=== PATIENT | male | born 1970 | race Asian ===

== ENCOUNTER 2018-07-05 00:24 | Emergency (ER) | payer OTHER ==
[~2018-07-05] VITALS: Ht 167.6 cm; Wt 87.3 kg
[2018-07-05] MEDS ORDERED: ZOLPIDEM TARTRATE 10 MG TABLET PO PRN (04:00)
[2018-07-05] MEDS ORDERED: LORazepam 2 MG TABLET PO PRN (04:00)
[2018-07-05] MEDS ORDERED: HALOPERIDOL 5 MG TABLET PO PRN (04:00)
[2018-07-05 05:02] LABS: BASOPHILS % (AUTO) 1.1 % (0.0-2.0); EOSINOPHILS % (AUTO) 0.7 % (1.0-6.0); HEMOGLOBIN 16.3 g/dL (13.5-17.5); LYMPHOCYTES # (AUTO) 1.5 K/uL (1.0-4.8); LYMPHOCYTES % (AUTO) 17.8 % (22.0-44.0); MEAN CORPUSCULAR HEMOGLOBIN 32.5 pg (26.0-34.0); MEAN CORPUSCULAR HGB CONC 35.4 G/dL (31.0-37.0); MEAN CORPUSCULAR VOLUME 92 fL (80-100); MONOCYTES # (AUTO) 0.6 K/uL (0.1-1.0); MONOCYTES % (AUTO) 7.1 % (2.0-9.0); NEUTROPHILS # (AUTO) 6.1 K/uL (1.8-7.7); NEUTROPHILS % (AUTO) 73.3 % (40.0-70.0); PLATELET COUNT (AUTO) 262 K/uL (150-450); RED BLOOD CELL COUNT(AUTO) 5.02 MIL/uL (4.50-5.90); RED CELL DISTRIBUTION WIDTH 13.3 % (11.5-14.5)
[2018-07-05 05:12] LABS: ANION GAP 8 mmol/L (8-16); CALCIUM, TOTAL 9.2 mg/dL (8.8-10.5); CARBON DIOXIDE 28 mmol/L (22-29); CHLORIDE 102 mmol/L (98-107); CREATININE 0.95 mg/dL (0.60-1.30); GLOMERULAR FILTR. RATE CALC > 60 mL/min (>60); GLUCOSE,RANDOM 107 mg/dL (70-110); POTASSIUM 3.8 mmol/L (3.5-5.1); SODIUM SERUM 138 mmol/L (136-145); UREA NITROGEN, BLOOD 9 mg/dL (7-18)
[2018-07-05 05:15] LABS: AMPHET/METH SCREEN,URINE NEGATIVE (NEGATIVE); BARBITURATE SCREEN, URINE NEGATIVE (NEGATIVE); BENZODIAZEPINES SCREEN,URINE NEGATIVE (NEGATIVE); CANNABINOID SCREEN,URINE NEGATIVE (NEGATIVE); COCAINE SCREEN,URINE NEGATIVE (NEGATIVE); METHADONE SCREEN, URINE NEGATIVE (NEGATIVE); OPIATE SCREEN,URINE NEGATIVE (NEGATIVE)
[2018-07-05 05:17] LABS: PHENCYCLIDINE SCREEN,URINE NEGATIVE (NEGATIVE)
[2018-07-05 05:18] LABS: ALANINE AMINOTRANSFERASE 38 U/L (12-78); ALBUMIN 4.3 g/dL (3.4-5.0); ALKALINE PHOSPHATASE 69 U/L (46-116); ASPARTATE AMINOTRANSFERASE 31 U/L (15-37); BILIRUBIN,TOTAL 0.9 mg/dL (0.1-1.0); TOTAL PROTEIN, SERUM 8.3 g/dL (6.4-8.2)
[2018-07-05 10:02] VITALS: BP 129/86
== END 2018-07-05 10:22 | disposition short-term general hospital (02) ==
LOC: EMS 00:25
DX: F20.9 Schizophrenia, unspecified (principal)
CPT/HCPCS: 36415; 80053; 80307; 85025; 99285; G0480